=== PATIENT | female | born 1950 | race Caucasian/White ===

== ENCOUNTER 2018-09-09 15:48 | Inpatient (IN) | payer BC, MEDICARE ==
[~2018-09-09 15:48] MED LIST: CEFAZOLIN 1 GM VIAL ONE; Lidocaine 1% PF 5 ML VIAL ONE; Ondansetron PF 4 MG/2 ML Vial ONE; PROPOFOL 200 MG/20 ML VIAL ONE; Sterile Water 10 ML VIAL ONE
--- NOTE | 2018-09-09 16:13 | RAD ---
LEFT WRIST 2 VIEWS: Date: 09/09/18 HISTORY: Trauma. Left wrist pain. FINDINGS/IMPRESSION: There are displaced fractures involving the distal radius and ulna. POS: OFF
[2018-09-09 16:19] LABS: #Eosinphils 0.2 thou/uL (0.0-0.7); #Lymphocytes 1.9 thou/uL (1.20-3.40); #Monocytes 0.7 thou/uL (0.11-0.59); #Neutrophils 4.7 thou/uL (1.40-6.50); %Basophils 0.6 % (0.0-1.0); %Eosinophils 2.4 % (0.0-10.0); %Lymphocytes 24.7 % (21.0-51.0); %Monocytes 9.1 % (0.0-10.0); %Neutrophils 63.2 % (42.0-75.0); Hemoglobin 13.4 g/dL (12.0-16.0); Mean Corpuscular HGB CONC 33.6 g/dL (32.0-36.0); Mean Corpuscular Hemoglobin 31.1 pg (27.0-31.0); Mean Corpuscular Volume 92.6 fL (78.0-98.0); Mean Platelet Volume 7.9 fL (7.4-10.4); Platelet Count 274 thou/uL (130-400); RBC Distribution Width 11.4 % (11.5-14.5); Red Blood Cell (RBC) Count 4.31 mill/uL (4.20-5.40); White Blood Cell (WBC) Count 7.5 thou/uL (4.8-10.8)
[2018-09-09] MEDS ORDERED: Fentanyl 100 MCG/2 ML VIAL ONE ×5 (16:19→22:15)
[2018-09-09 16:26] LABS: PTT 25.3 SEC (22.9-36.1); Prothrombin Time 13.2 SEC (12.0-14.7)
[2018-09-09] MEDS ORDERED: Ondansetron PF 4 MG/2 ML Vial ONE (16:27)
--- NOTE | 2018-09-09 16:34 | RAD ---
RADIOGRAPH CHEST 1 VIEW: 09/09/18 HISTORY: 68-year-old female for preoperative clearance. FINDINGS: The thoracic aorta is tortuous and ectatic. There is no evidence of air space density, pneumothorax, or pulmonary edema. The lateral costophrenic angles are sharp. IMPRESSION: 1) No acute pulmonary findings. 2) Ectasia of thoracic aorta. john [] POS: BOLA
[2018-09-09 16:40] LABS: ALT (SGPT) 11 U/L (8-55); AST (SGOT) 16 U/L (5-34); Albumin 4.2 g/dL (3.4-4.8); Alkaline Phosphatase 85 U/L (40-150); Anion Gap 11 mmol/L (10-20); BUN (Urea Nitrogen) 25 mg/dL (9.8-20.1); Bilirubin, Total 0.3 mg/dL (0.2-1.2); Calc. Creatinine Clearance 0 mL/min (70-130); Calcium 9.2 mg/dL (7.8-10.44); Carbon Dioxide 26 mmol/L (23-31); Chloride 106 mmol/L (98-107); Estimated GFR-MDRD 70; Globulin 2.8 g/dL (2.4-3.5); Glucose 122 mg/dL (80-115); Potassium 4.2 mmol/L (3.5-5.1); Sodium 139 mmol/L (136-145)
[2018-09-09] MEDS ORDERED: CEFAZOLIN 1 GM VIAL ONE ×2 (16:44→19:53)
[2018-09-09] MEDS ORDERED: Gentamicin Sulfate 300 MG in Sodium Chloride 0.9% 100 ML IVPB ONE (16:45)
[2018-09-09] MEDS ORDERED: Dextrose 5% in Water 1,000 ML IV PRN (17:56)
[2018-09-09] MEDS ORDERED: Dextrose 50% Abboject 50 ML SYRINGE SLOW IVP PRN (17:56)
[2018-09-09] MEDS ORDERED: hydrALAZINE 20 MG/ML VIAL SLOW IVP PRN (17:59)
[2018-09-09] MEDS ORDERED: Ondansetron PF 4 MG/2 ML Vial IVP PRN (17:59)
[2018-09-09] MEDS ORDERED: Morphine 4 MG/ML VIAL SLOW IVP PRN (17:59)
[2018-09-09] MEDS ORDERED: Sodium Chloride 0.9% 1,000 ML IV SCH (18:00)
[2018-09-09] MEDS ORDERED: traMADol HCl 50 MG TAB PO PRN (18:05)
--- NOTE | 2018-09-09 19:06 | HP ---
HISTORY OF PRESENT ILLNESS: A 68-year-old female was painting her sidewalk outside whenever she tripped and fell, landing on her left arm. The patient denies any loss of consciousness. Denies being dizzy before falling. States that she just tripped on her boot and went to catch herself, landing on her left arm. The patient last had something to eat and drink at approximately 12:30 today. She was a level 2 trauma activation as she has a left open wrist fracture. The patient was evaluated in the emergency room and just started on IV antibiotics. Pain is under control at this time with fentanyl IV. PAST MEDICAL HISTORY: The patient denies any history. PAST SURGICAL HISTORY: Cholecystectomy. HOME MEDICATIONS: 1. Aspirin 81 mg daily. 2. Zoloft 25 mg daily. ALLERGIES: NO KNOWN DRUG ALLERGIES. PSYCHIATRIC HISTORY: Depression and anxiety. SOCIAL HISTORY: The patient drinks socially rarely. Denies any drug use. Denies history of smoking. REVIEW OF SYSTEMS: GENERAL: No fever or chills. HEENT: No photophobia. Denies neck pain. Denies headache. Denies vision changes. CARDIOVASCULAR: Denies syncope. Denies chest pain. RESPIRATORY: Denies shortness of breath, cough, or cold. GI: Denies nausea, vomiting, diarrhea, or constipation. MUSCULOSKELETAL: Complains of deformity to the left wrist and wound, status post fall. SKIN: No rash, or skin problems. NEUROLOGIC: Denies any focal weakness. Denies any headache or dizziness, denies loss of sensation. PHYSICAL EXAMINATION: VITAL SIGNS: Blood pressure 140/76, respirations 18, SpO2 of 96% on room air, pulse 55, and temperature 98.4. GENERAL: No distress. Pain controlled. HEENT: Head is atraumatic. Pupils equal, round, and reactive at 3 mm. Normal nose exam. Normal mouth inspection. Trachea is midline. NECK: Denies any neck pain, normal range of motion. CHEST: There are no murmurs. Regular rate and rhythm. RESPIRATORY: Equal chest rise. Normal respirations. No wheezes or rhonchi. ABDOMEN: Soft and nontender. Active bowel sounds. MUSCULOSKELETAL: The patient has a splint placed to the left arm. Cap refill is 1 second. Normal sensation. The patient moves all extremities. NEUROLOGICAL: Cranial nerves intact, normal strength. LABORATORY DATA: WBC 7.5, RBC 4.31, hemoglobin 13.4, hematocrit 39.9, and platelets 274. PT 13.2, INR 1.0, and PTT 25.3. Sodium 139, potassium 4.2, chloride 106, CO2 of 26, BUN 25, creatinine 0.82, glucose 122, calcium 9.2, total bilirubin 0.3, AST 16, ALT 11, alkaline phos 85, serum total protein 7, and albumin 4.2. DIAGNOSTICS: Wrist x-ray, left wrist, displaced fractures involving the distal radius and ulnar. Chest x-ray, no acute pulmonary findings. ASSESSMENT: 1. Ground level fall. 2. Displaced left distal radius and ulnar fracture. 3. Acute traumatic pain. PLAN: Admit the patient to surgical ortho floor. Ortho has been consulted. Plan is for the patient to go to the OR later tonight. The patient will remain n.p.o. We will manage the patient's pain. The patient will be an OBS admission. This patient has been discussed with the attending physician. Job ID: [id number] MTDD
[2018-09-09] MEDS ORDERED: Sodium Chloride 0.9% 100 ML ONE (19:54)
[2018-09-09] MEDS ORDERED: Midazolam HCl 2 mg/2 ml Vial ONE (20:03)
[2018-09-09] MEDS ORDERED: Bupivacaine HCl 0.5%/Epinephrine 1:200,000/PF 30 ml Vial ONE (20:57)
[2018-09-09] MEDS ORDERED: Ondansetron HCl/PF 4 MG/2 ML Vial IVP PRN (21:39)
[2018-09-09] MEDS ORDERED: Promethazine HCl 25 MG/ML VIAL SLOW IVP PRN (21:39)
[2018-09-09] MEDS ORDERED: Labetalol HCl 100 MG/20 ML VIAL SLOW IVP PRN (21:39)
[2018-09-09] MEDS ORDERED: Promethazine HCl 25 MG/ML VIAL IM PRN (21:39)
[2018-09-09] MEDS ORDERED: Meperidine HCl/PF 25 MG/ML VIAL ONE (21:51)
[2018-09-09] MEDS ORDERED: CEFAZOLIN 2 GM in Sodium Chloride 0.9% 100 ML IVPB SCH (22:00)
[2018-09-09] MEDS ORDERED: HYDROmorphone 2 MG/ML VIAL ONE (22:03)
[2018-09-09] MEDS: Acetaminophen 500 MG TAB PO SCH ×2 (23:51)
[2018-09-09] MEDS: Famotidine 20 MG TAB PO SCH (23:51)
[2018-09-09] MEDS: traMADol HCl 50 MG TAB PO SCH ×2 (23:51→23:52)
[2018-09-09] MEDS: Ketorolac Tromethamine 30 MG/ML VIAL IVP SCH (23:52)
[2018-09-10] MEDS ORDERED: CEFAZOLIN 2 GM/50 ML BAG IVPB SCH ×2 (01:00→05:00)
[2018-09-10] MEDS ORDERED: CEFAZOLIN 2 GM/50 ML-DEXTROSE 2 GM in Premix Bag 1 BAG IVPB SCH (01:00)
[2018-09-10 01:46] VITALS: BMI 29.7
--- NOTE | 2018-09-10 04:48 | OP ---
DATE OF PROCEDURE: 09/09/2018 PREOPERATIVE DIAGNOSIS: Open left distal radius fracture, grade 1, Colles fracture. POSTOPERATIVE DIAGNOSIS: Open left distal radius fracture, grade 1, Colles fracture. PROCEDURES PERFORMED: 1. I and D of the fracture. 2. Open reduction and internal fixation, left distal radius fracture. 3. Short-arm splint. DETECTIVE: Fahad Penn ANESTHESIOLOGIST: Deepali. ANESTHESIA: The patient received a LMA. ESTIMATED BLOOD LOSS: 30 mL. TOURNIQUET TIME: 43 minutes at 250 mmHg. ANTIBIOTICS: 1 g of Ancef. She received Ancef and gentamicin preoperatively. IMPLANTS: 2.4, 2.7 variable angle 3-hole plate with three 2.7 screws and four 2.4 locking screws. COMPLICATIONS: None. INDICATIONS FOR PROCEDURE: Ms. Owusu is a 68-year-old female presented after had fall at work. The patient had an open grade 1 fracture. I discussed about the risks and benefits of open reduction and internal fixation, pain, scar, bleeding , infection, damage to vital structures, decreased range of motion and strength, need for further surgery, failure of procedure, continued pain despite surgical intervention. The patient understood the risks and benefits and elected to proceed. DESCRIPTION OF PROCEDURE: Time-out was performed. The patient's left arm was identified as the operative site, based on site, consents, and markings. After time-out, the patient's incision was made down through the skin, we dissected down the FCR, pulled it, ulnarly came down on the fascia, opened up, pulled, found, came down on the patient's pronator quadratus, split down on the pronator quadratus with cautery, elevated medial and lateral to expose the patient's distal fragment. We washed out and curetted out the fracture as well as washed out the persistent open fracture. We infiltrated and watched it come out of the small poke hole that was noted on the ulnar side. We used an Angiocath and washed also through the site. We then reduced our fracture into position. We pinned the distal radius into position. I first reducing and placed our plate into position, placed our toggle hole on a 2.7 and made sure that we had appropriate ulnar length and distance versus radial height. We pinned our distal radius into position. I liked the overall alignment on AP and lateral radiographs. We then put our 2.7 locking screws into position. We put our center 2 screws. We then placed our ulnar and then our most radial screw, ensured that we were out of the joint line and had overall good reduction on AP and lateral radiographs. We then washed. We placed our final two more 2.7 screws proximally. We took final images of the patient's fracture. We washed again and washed back with Angiocath back through the fracture site, washed total of about 300 mL toward the base and we then closed the pronator quadratus. We then closed subcu with 2-0 and 3-0 nylon horizontal mattress sutures. We then placed the patient in a short-arm splint. The patient's tourniquet was let down at 43 minutes. The patient will be admitted for 24 hours antibiotics, ice and elevation, moving her fingers. The patient will be followed up and will be discharged home tomorrow stable. Job ID: [id number] MTDD
[2018-09-10] MEDS: Acetaminophen 500 MG TAB PO SCH ×2 (05:13→11:44)
[2018-09-10] MEDS: Ketorolac Tromethamine 30 MG/ML VIAL IVP SCH (05:14)
[2018-09-10] MEDS: traMADol HCl 50 MG TAB PO SCH ×2 (05:14→11:44)
[2018-09-10 06:35] LABS: #Basophils 0.1 thou/uL (0.0-0.2); #Eosinphils 0.1 thou/uL (0.0-0.7); #Monocytes 0.8 thou/uL (0.11-0.59); #Neutrophils 4.9 thou/uL (1.40-6.50); %Basophils 0.9 % (0.0-1.0); %Eosinophils 0.8 % (0.0-10.0); %Lymphocytes 25.3 % (21.0-51.0); Hemoglobin 11.2 g/dL (12.0-16.0); Mean Corpuscular HGB CONC 33.2 g/dL (32.0-36.0); Mean Corpuscular Hemoglobin 31.1 pg (27.0-31.0); Mean Corpuscular Volume 93.9 fL (78.0-98.0); Mean Platelet Volume 7.9 fL (7.4-10.4); Platelet Count 218 thou/uL (130-400); RBC Distribution Width 11.5 % (11.5-14.5); Red Blood Cell (RBC) Count 3.59 mill/uL (4.20-5.40); White Blood Cell (WBC) Count 7.8 thou/uL (4.8-10.8)
[2018-09-10 07:10] LABS: Anion Gap 10 mmol/L (10-20); BUN (Urea Nitrogen) 15 mg/dL (9.8-20.1); Calc. Creatinine Clearance 121 mL/min (70-130); Calcium 7.8 mg/dL (7.8-10.44); Carbon Dioxide 21 mmol/L (23-31); Chloride 111 mmol/L (98-107); Estimated GFR-MDRD 84; Glucose 91 mg/dL (80-115); Potassium 4.1 mmol/L (3.5-5.1); Sodium 138 mmol/L (136-145)
[2018-09-10] MEDS: Famotidine 20 MG TAB PO SCH (08:19)
[2018-09-10] MEDS: CEFAZOLIN 2 GM/50 ML BAG IVPB SCH ×2 (08:59→13:53)
[2018-09-10] MEDS ORDERED: Ibuprofen 600 MG TAB PO SCH (09:00)
[2018-09-10] MEDS ORDERED: Prevnar 13-Val Conj/PF 0.5 ML SYRINGE IM ONE (09:00)
--- NOTE | 2018-09-10 09:29 | RAD ---
INTRAOPERATIVE IMAGING OF THE LEFT WRIST: 09/09/2018 HISTORY: Fracture. COMPARISON: 09/09/2018 FINDINGS: The fracture at the base of the ulnar styloid demonstrates an anatomic location. There is normal cleopatra tomic alignment of the distal right radius, status post placement of volar screw and plate fixation. IMPRESSION: Intraoperative imaging as above. POS: SYDNEY
[2018-09-10 12:45] VITALS: BP 127/76; TEMP 98.3
--- NOTE | 2018-09-10 19:05 | CON ---
DATE OF CONSULTATION: 09/10/2018 HISTORY OF PRESENT ILLNESS: Ms. Owusu is a pleasant 68-year-old female, status post fall with grade 1 open distal radius fracture with open reduction and internal fixation with I and D of left open distal radius fracture. The patient is resting comfortably in bed. No acute complaints. PHYSICAL EXAMINATION: VITAL SIGNS: Afebrile, temperature 98; pulse 54; respirations 18; blood pressure 134/72. GENERAL: Alert and oriented female, in no acute distress. EXTREMITIES: Neurovascularly intact distally. Brisk cap refill. Median, ulnar , radial, AIN/PIN distributions intact. Splint clean, dry, and intact with soft compartments. IMPRESSION: Open grade 1 distal radius fracture, status post open reduction and internal fixation. ASSESSMENT AND PLAN: The patient will be discharged to home after 24 hours of antibiotics. The patient will be discharged with pain medications per Trauma. The patient will follow up in clinic in about 12 to 14 days for suture removal and transition to Velcro wrist splint. Job ID: [id number] [facility]
--- NOTE | 2018-09-11 11:12 | HP ---
ADDENDUM: The patient was seen on morning rounds with the trauma service. For full details of her admission, please see the H and P dictated by Ange Ricci, Trauma Nurse Practitioner, the details of which I have confirmed with the patient. In short, this is a 68-year-old woman who tripped outside and landed on her left arm. She was found to have an open left wrist fracture and was started on IV antibiotics and was taken the same day to the operating room. She is feeling much better since her surgery with very little pain in her arm. She does have some minor swelling in her hand, has normal movement and sensation. She denies pain elsewhere and was not knocked out. PAST MEDICAL HISTORY: She has no PAST medical history. MEDICATIONS: Takes aspirin and Zoloft daily. ALLERGIES: NO KNOWN DRUG ALLERGIES. SOCIAL HISTORY: Does not smoke or use drugs and drinks only rarely and not to excess. PAST SURGICAL HISTORY: She has had a cholecystectomy in the past, but no other surgeries. PHYSICAL EXAMINATION: Complete physical examination was performed personally. No other foot traumatic injuries were identified. The patient has appropriate help at home and followup to be scheduled with Orthopedics. She has required minimal pain medications. Plan was discharged home after completing her course of antibiotics at 2:00 p.m. today. Job ID: [id number]
--- NOTE | 2018-09-11 11:24 | CON ---
DATE OF CONSULTATION: 09/09/2018 HISTORY OF PRESENT ILLNESS: Ms. Owusu is a pleasant 68-year-old female. She is right-hand dominant. 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 The patient says if comfortable otherwise she is in pain about 3 or greater of 10 pain. Denies numbness or tingling. No previous history of surgery to her left wrist. PAST MEDICAL HISTORY: None. PAST SURGICAL HISTORY: None. ALLERGIES: NO KNOWN DRUG ALLERGIES. MEDICATIONS: Aspirin 81 mg. SOCIAL HISTORY: Nondrinker and nonsmoker. 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 PHYSICAL EXAMINATION: VITAL SIGNS: The patient's vital signs are ___pain 3/10, 96% on room air. EXTREMITIES: In the left upper extremity, the patient has a small punctate lesion on the ulnar border of her wrist, it is about 1 cm consistent with grade 1 lesion. The patient has apex volar angulated wrist. The patient has sensation intact to the medial ulnar and radial distribution. She has pain with limited flexion of her fingers. She is unable to move her fingers with the deformity of her wrist. DIAGNOSTIC DATA: Radiographs showed what appears to be an extra-articular fracture with comminution of the metaphysis with 100% dorsal displacement and a small avulsion fracture of ulnar styloid. IMPRESSION: Open grade 1 left distal radius fracture with possible intra- articular split, greater than three fragments. ASSESSMENT AND PLAN: The patient will be n.p.o. [facility] OR to follow. The patient received preop antibiotics. She will be splinted per ER. The patient will be ice and elevated. I discussed with her the risks and benefits of surgery to include pain, scar, bleeding, infection, damage to vital structures, decreased range of motion and strength, continued pain with surgical intervention. The patient understands the risks and benefits, and elects to proceed. Job ID: [id number] [facility]
--- NOTE | 2018-09-11 16:49 | CON ---
DATE OF CONSULTATION: ADDENDUM: PAST MEDICAL HISTORY: She does have a past medical history of depression. PAST SURGICAL HISTORY: Cholecystectomy. MEDICATIONS: The patient takes sertraline and aspirin. Job ID: [id number]
== END 2018-09-10 14:31 | disposition home or self-care (01) | DRG 512 ==
LOC: ERS 15:48 → SDC/OP 18:37 → SURG B 21:38
PROVIDERS: ADMIT Specialist; ATTEND Specialist
PROC: 0PSJ04Z Reposition Left Radius with Internal Fixation Device, Open Approach (ICD-10-PCS; principal; 2018-09-09)
DX: S52.532B Colles' fracture of left radius, initial encounter for open fracture type I or II (principal); G89.11 Acute pain due to trauma; F32.9 Major depressive disorder, single episode, unspecified; Z79.82 Long term (current) use of aspirin; Z79.899 Other long term (current) drug therapy; W01.0XXA Fall on same level from slipping, tripping and stumbling without subsequent striking against object, initial encounter
CPT/HCPCS: 29125; 36415; 71045; 76001; 80048; 80053; 85025; 85610; 85730; 90471; 90670; 96365; 96375; A4216; C1713; G0009; G0390; G8978-GP-CI; G8979-GP-CI; G8980-GP-CI; J0670; J0690; J1170; J1580; J1885; J2001; J2175; J2250; J2270; J2405; J2704; J3010; J3490; J7050

== ENCOUNTER 2019-04-07 11:32 | Outpatient (CLI) | payer MEDICARE ==
--- NOTE | 2019-04-07 13:00 | MMO ---
Bilateral MAMMO Bilat Screen [facility]. CLINICAL HISTORY: Patient is 69 years old and is seen for screening. The patient has no family history of breast cancer. The patient has no personal history of cancer. VIEWS: The views performed were: bilateral craniocaudal with tomosynthesis and bilateral mediolateral oblique with tomosynthesis. FILMS COMPARED: The present examination has been compared to prior imaging studies performed at [facility] on 06/07/2015 and 09/28/2016, and at [facility] on 06/13/2009 and 08/01/2013. MAMMOGRAM FINDINGS: The breasts are heterogeneously dense, which could obscure a lesion on mammography. There are stable benign appearing calcifications seen in both breasts. There are no suspicious masses, suspicious calcifications, or new areas of architectural distortion. IMPRESSION: THERE IS NO MAMMOGRAPHIC EVIDENCE OF MALIGNANCY. A ROUTINE FOLLOW-UP MAMMOGRAM IN 1 YEAR IS RECOMMENDED. THE RESULTS OF THIS EXAM WERE SENT TO THE PATIENT. ACR BI-RADS Category 2 - Benign finding MAMMOGRAPHY NOTE: 1. A negative mammogram report should not delay a biopsy if a dominant of clinically suspicious mass is present. 2. Approximately 10% to 15% of breast cancers are not detected by mammography. 3. Adenosis and dense breasts may obscure an underlying neoplasm. Reported by: MOR WALLACE MD Electonically Signed: [id number]
== END 2019-04-07 11:33 | disposition home or self-care (01) ==
LOC: BICMAMMO 11:32
PROVIDERS: ATTEND Family Medicine
DX: Z12.31 Encounter for screening mammogram for malignant neoplasm of breast (principal)
CPT/HCPCS: 77063; 77067